=== PATIENT | female | born 1980 | race Caucasian/White ===

== ENCOUNTER → 2017-04-21 | Outpatient (CLI) | payer BC ==
[~2017-04-21] MED LIST: LEVOTHYROXINE PO; PRLSR20 PO
--- NOTE | 2017-04-21 15:27 | DIAGNOSTIC IMAGING REPORT ---
LEFT SHOULDER MIN 2 VIEWS ROUTINE CLINICAL HISTORY: R76.8 Positive ISSA (antinuclear antibody)M25.512 Left shoulder p pain COMPARISON: None. DISCUSSION: Mild degenerative change glenohumeral joint. Bony mineralization is normal. Acromioclavicular joint is unremarkable. There are no abnormal soft tissue calcifications. There is no evidence for soft tissue swelling. IMPRESSION: Minimal degenerative change glenohumeral joint. No acute process. The above report was generated using voice recognition software. It may contain grammatical, syntax or spelling errors. Electronically signed by: Cale Chamorro M.D. 04/21/2017 3:26 PM Dictated Date/Time: 04/21/2017 3:25 PM
[2017-04-23 18:30] LABS: ANA SCREEN Negative (Negative)
== END | disposition home or self-care (01) ==
LOC: C.RAD1850 14:35
PROVIDERS: ATTEND Internal Medicine Rheumatology
DX: R76.8 Other specified abnormal immunological findings in serum (principal); M25.512 Pain in left shoulder

== ENCOUNTER → 2018-05-08 | Outpatient (CLI) | payer BC | END | disposition home or self-care (01) | LOC: C.PAPS 13:29 | PROVIDERS: ATTEND Obstetrics & Gynecology | DX: Z01.419 Encounter for gynecological examination (general) (routine) without abnormal findings (principal) ==